=== PATIENT | male | born 1980 | race Caucasian/White ===

== ENCOUNTER 2020-01-13 10:45 | Observation (INO) | payer OTHER ==
[~2020-01-13] VITALS: Ht 175.3 cm; Wt 65.6 kg
--- NOTE | 2020-01-13 12:22 | NUR ---
Pt resting in bed, law enforcement at bedside.
[2020-01-13] MEDS ORDERED: ACETAMINOPHEN 325 MG TABLET PO PRN ×2 (13:00→18:00)
[2020-01-13 13:09] LABS: BASOPHILS # (AUTO) 0.06 x10^3/uL (0-0.1); BASOPHILS % (AUTO) 1 % (0-1); EOSINOPHILS # (AUTO) 0.22 x10^3/uL (0-0.4); EOSINOPHILS % (AUTO) 3 % (1-7); LYMPHOCYTES # (AUTO) 2.27 x10^3/uL (1-3.4); LYMPHOCYTES % (AUTO) 34 % (22-44); MD NO; MEAN CORPUSCULAR HEMOGLOBIN 29.2 pg (27.5-34.5); MEAN CORPUSCULAR HGB CONC 32.5 g/dL (33.2-36.2); MEAN PLATELET VOLUME 7.2 fL (7.4-10.4); MONOCYTES # (AUTO) 0.38 x10^3/uL (0.2-0.8); MONOCYTES % (AUTO) 6 % (2-9); NEUTROPHILS # (AUTO) 3.66 x10^3/uL (1.8-6.8); NEUTROPHILS % (AUTO) 56 % (42-75); PLATELET COUNT 407 x10^3/uL (130-400); RED BLOOD COUNT 4.67 x10^6/uL (4.38-5.82)
[2020-01-13 13:20] LABS: ANION GAP 7 mmol/L (5-15); CALCIUM 9.1 mg/dL (8.5-10.1); CHLORIDE 105 mmol/L (98-107)
[2020-01-13] MEDS ORDERED: SODIUM CHLORIDE FLUSH 10ML SYR IVF PRN (13:30)
[2020-01-13] MEDS: SODIUM CHLORIDE 0.9% 1,000 ML IV SCH (14:32)
[2020-01-13] MEDS ORDERED: FENTANYL PF 100 MCG/2ML ONE (16:50)
[2020-01-13] MEDS ORDERED: ROCURONIUM 10 MG/ML,10ML ONE (17:04)
[2020-01-13] MEDS ORDERED: SUCCINYLCHOLINE 20 MG/ML, 10ML ONE (17:04)
[2020-01-13] MEDS ORDERED: PROPOFOL 10 MG/ML, 20ML ONE (17:20)
[2020-01-13] MEDS ORDERED: CEFAZOLIN 1,000 MG ONE (17:20)
[2020-01-13] MEDS ORDERED: ONDANSETRON 2MG/ML, 2ML ONE (17:20)
[2020-01-13] MEDS ORDERED: DEXAMETHASONE 4 MG/ML, 1ML ONE (17:20)
[2020-01-13] MEDS ORDERED: KETOROLAC 30 MG/1 ML ONE (17:20)
[2020-01-13] MEDS ORDERED: COCAINE TOPICAL SOLN 4%, 4ML ONE (17:46)
[2020-01-13] MEDS ORDERED: OXYcodone 5 MG/5 ML ORAL.SOL UDC PO PRN (18:00)
[2020-01-13] MEDS ORDERED: PROMETHAZINE 25 MG/ML, 1ML IV PRN (18:00)
[2020-01-13] MEDS ORDERED: MIDAZOLAM 1 MG/ML, 2ML IV PRN (18:00)
[2020-01-13] MEDS ORDERED: FENTANYL PF 100 MCG/2ML IV PRN (18:00)
[2020-01-13] MEDS ORDERED: OXYcodone IR 5MG TABLET PO PRN (19:00)
[2020-01-13 20:22] VITALS: BP 132/78
[2020-01-14] MEDS: SODIUM CHLORIDE 0.9% 1,000 ML IV SCH ×2 (01:02→10:00)
[2020-01-14 01:15] VITALS: BP 107/69
[2020-01-14 04:53] VITALS: BP 118/80
[2020-01-14 08:01] VITALS: BP 113/74
[2020-01-14] MEDS ORDERED: ACET325T26 PO (08:45)
== END 2020-01-14 13:43 | disposition home or self-care (01) ==
LOC: ED 11:37 → EDIP 13:03 → INTOOBSV 13:03 → 4NE 13:42
PROVIDERS: ADMIT Internal Medicine; ATTEND Hospitalist
DX: S02.2XXA Fracture of nasal bones, initial encounter for closed fracture (principal); J32.0 Chronic maxillary sinusitis; W01.0XXA Fall on same level from slipping, tripping and stumbling without subsequent striking against object, initial encounter; Y93.E1 Activity, personal bathing and showering; Y92.193 Bedroom in other specified residential institution as the place of occurrence of the external cause
CPT/HCPCS: 21315; 36415; 70486; 80048; 85025; 99284; G0378; J0330; J0690; J1100; J1885; J2405; J2704; J3010; J7030